=== PATIENT | male | born 1995 | race Caucasian/White ===

== ENCOUNTER 2017-03-11 14:44 | Emergency (ER) | payer OTHER ==
[2017-03-11] MEDS ORDERED: Azithromycin TAB* 250 MG PO ONE (15:24)
[2017-03-11] MEDS ORDERED: cefTRIAXone VIAL(*) 250 MG VIAL IM ONE (15:24)
[2017-03-11] MEDS ORDERED: Lidocaine 1% MPF* 2 ML VIAL INJ ONE (15:25)
--- NOTE | 2017-03-11 15:43 | UC ---
Complaint Male HPI - HPI Summary HPI Summary: ONE WEEK OF DISCOMFORT WITH URINATION, WHITE DISCHARGE FROM [facility]. TOOK AZO THIS MORNING, URINE NOW RED (CONCERN FOR BLOOD IN URINE). NO RECENT CHANGES IN SEXUAL PARTNER, HAS BEEN WITH SAME PARTNER SINCE SEPTEMBER. NO LESIONS. PARTNER COMPLAINS OF NO SYMPTOMS. NO FEVER. NO BACK PAIN. NO ABDOMINAL PAIN. - History of Current Complaint Chief Complaint: UCGU Stated Complaint: URINARY Time Seen by Provider: 03/11/17 14:56 Hx Obtained From: Patient Onset/Duration: Lasting Weeks Timing: Intermittent Severity Initially: Mild Severity Currently: Mild Location: Suprapubic Aggravating Factor(s): Voiding Associated Signs And Symptoms: Positive: Hematuria, Dysuria, Penile Discharge. Negative: Back Pain, Fever, Constipation, Blood in Stool, Rectal Pain, Appetite , Nausea, Vomiting(# Of Episodes =), Penile Swelling - Risk Factors Testicular Torsion: Negative - Allergies/Home Medications Allergies/Adverse Reactions: Allergies Allergy/AdvReac Type Severity Reaction Status Date / Time No Known Allergies Allergy Verified 03/11/17 14:51 Home Medications: Home Medications NK [No Home Medications Reported] 03/11/17 [History Confirmed 03/11/17] PMH/Surg Hx/FS Hx/Imm Hx Previously Healthy: Yes - Surgical History Surgical History: None - Family History Known Family History: Negative: Renal Disease - Social History Occupation: Student Lives: With Family Alcohol Use: Weekly Substance Use Type: None Smoking Status (MU): Never Smoked Tobacco Review of Systems Constitutional: Negative Skin: Negative Eyes: Negative ENT: Negative Respiratory: Negative Cardiovascular: Negative Gastrointestinal: Negative Genitourinary: Dysuria, Frequency, Urgency, Vaginal/Penile Discharge Motor: Negative Neurovascular: Negative Musculoskeletal: Negative Neurological: Negative Psychological: Negative Is Patient Immunocompromised?: No All Other Systems Reviewed And Are Negative: Yes Physical Exam Triage Information Reviewed: Yes Appearance: Well-Appearing, No Pain Distress, Well-Nourished Vital Signs: Initial Vital Signs Temp 98 F 03/11/17 14:48 Pulse 66 03/11/17 14:48 Resp 16 03/11/17 14:48 BP 139/80 03/11/17 14:48 Pulse Ox 98 03/11/17 14:48 Vital Signs Reviewed: Yes Eye Exam: Normal ENT Exam: Normal ENT: Positive: Normal ENT inspection, Hearing grossly normal, Pharynx normal Dental Exam: Normal Neck exam: Normal Neck: Positive: Supple, Nontender, No Lymphadenopathy Respiratory Exam: Normal Respiratory: Positive: Chest non-tender, Lungs clear, Normal breath sounds, No respiratory distress, No accessory muscle use Cardiovascular Exam: Normal Cardiovascular: Positive: RRR, No Murmur, Pulses Normal, Brisk Capillary Refill Abdominal Exam: Normal Abdomen Description: Positive: Nontender, No Organomegaly, Other: - NO PENILE LESIONS, NO TESTICULAR SWELLING. NO PENILE DISCHARGE NOTED ON PHYSICAL EXAM Musculoskeletal Exam: Normal Musculoskeletal: Positive: Strength Intact, ROM Intact Neurological Exam: Normal Psychological Exam: Normal Skin Exam: Normal Complaint Male Course/Dx - Course Course Of Treatment: DUE TO AZO, URINE CULTURE OBTAINED. GC TESTING OBTAINED WITH URETHRAL SWAB, TREATED PROPHYLACTICALLY FOR GC AT URGENT CARE. WILL FOLLOW UP WITH RECOMMENDATIONS AFTER URINE CULTURE IS FINALIZED. REFERRED TO DR THOMPSON, IF ALL RESULTS RETURN NEGATIVE. - Differential Dx/Diagnosis Differential Diagnosis/HQI/PQRI: Epididymitis, Cancer, Prostatitis, Urinary Tract Infection Provider Diagnoses: DYSURIA Discharge - Discharge Plan Condition: Stable Disposition: HOME Patient Education Materials: Dysuria (ED) Referrals: Ketan Thompson MD [Medical Doctor] - If Needed
--- NOTE | 2017-03-13 07:47 | UC ---
Progress - Progress Note Progress Note: Urine cx is neg. pt was treated for GC to be certain. -gc/chlam was neg -per note, he thinks he saw blood in urine, however UA was not done b/c he took azo. -I recommend that he have f/u w/ his pcp and/or the urologist he was referred to for f/u to check for blood and if he cont to have sx.
== END 2017-03-11 16:06 | disposition home or self-care (01) ==
LOC: UCCORT 14:44
DX: R30.0 Dysuria (principal); R36.9 Urethral discharge, unspecified; R31.9 Hematuria, unspecified
CPT/HCPCS: 87086; 87491; 87591; 96372; 99202; A9270-GY; G0463; J0696

== ENCOUNTER 2017-06-10 10:25 | Emergency (ER) | payer OTHER ==
--- NOTE | 2017-06-10 11:43 | UC ---
FLU HPI - HPI Summary HPI Summary: yesterday began with fever chills cough and body aches - History of Current Complaint Chief Complaint: UCRespiratory Stated Complaint: FLU SYMPTOM Time Seen by Provider: 06/10/17 11:32 Hx Obtained From: Patient Onset/Duration: Sudden Onset, Lasting Days - 1, Still Present Severity Currently: Moderate Severity Initially: Moderate Pain Intensity: 8 Pain Scale Used: 0-10 Numeric Associated Signs & Symptoms: Positive: Fever, Myalgia, Cough, Sore Throat, Nasal Congestion, Headache Related Hx: Possible Flu/Infectious Exposure - Allergy/Home Medications Allergies/Adverse Reactions: Allergies Allergy/AdvReac Type Severity Reaction Status Date / Time No Known Allergies Allergy Verified 06/10/17 11:46 PMH/Surg Hx/FS Hx/Imm Hx Previously Healthy: Yes - Surgical History Surgical History: None - Family History Known Family History: Negative: Renal Disease - Social History Occupation: Student Lives: Dormitory/Roommates Alcohol Use: Weekly Substance Use Type: None Smoking Status (MU): Never Smoked Tobacco Review of Systems Constitutional: Fever, Chills, Fatigue ENT: Sore Throat, Ear Ache, Nasal Discharge Respiratory: Cough Cardiovascular: Negative Gastrointestinal: Negative Genitourinary: Negative Motor: Negative Neurovascular: Negative Musculoskeletal: Arthralgia, Myalgia Neurological: Headache Psychological: Negative Is Patient Immunocompromised?: No All Other Systems Reviewed And Are Negative: Yes Physical Exam Triage Information Reviewed: Yes Appearance: Well-Nourished, Ill-Appearing, Pain Distress Vital Signs Reviewed: Yes Eye Exam: Normal Eyes: Positive: Conjunctiva Clear ENT Exam: Normal ENT: Positive: Normal ENT inspection, Hearing grossly normal, Pharynx normal, Nasal congestion, Nasal drainage, TMs normal, Uvula midline. Negative: Tonsillar swelling, Tonsillar exudate, Trismus, Muffled voice, Hoarse voice, Dental tenderness, Sinus tenderness Neck exam: Normal Neck: Positive: Supple, Nontender, No Lymphadenopathy Respiratory Exam: Normal Respiratory: Positive: Chest non-tender, Lungs clear, Normal breath sounds, No respiratory distress, No accessory muscle use Cardiovascular Exam: Normal Cardiovascular: Positive: No Murmur, Pulses Normal, Brisk Capillary Refill, Tachycardia Musculoskeletal Exam: Normal Musculoskeletal: Positive: Strength Intact, ROM Intact, No Edema Neurological Exam: Normal Neurological: Positive: Alert, Muscle Tone Normal Psychological Exam: Normal Skin Exam: Normal Diagnostics - Laboratory Diagnostic Studies Completed/Ordered: Influenza A/B (-) Strep (+) Flu Course/Dx - Course Course Of Treatment: Amoxicillin, tylenol, ibuprofen increaase fluids rest follow with [facility] if needed - Differential Dx/Diagnosis Provider Diagnoses: Strep Pharyngitis Discharge - Discharge Plan Condition: Stable Disposition: HOME Prescriptions: Amoxicillin PO (*) [Amoxicillin 500 MG CAP*] 500 mg PO Q12H #20 cap Patient Education Materials: Strep Throat (ED) Forms: *School Release Referrals: [facility] [Outside] - If Needed
[2017-06-10 11:45] VITALS: BP 136/69
[2017-06-10] MEDS: Ibuprofen TAB* 600 MG PO ONE (11:46)
== END 2017-06-10 12:23 | disposition home or self-care (01) ==
LOC: UCCORT 10:25
DX: J02.0 Streptococcal pharyngitis (principal)
CPT/HCPCS: 87502; 87651; 99212; A9270-GY; G0463

== ENCOUNTER 2018-01-11 13:59 | Emergency (ER) | payer OTHER ==
[2018-01-11 15:08] VITALS: BP 144/73
--- NOTE | 2018-01-11 15:50 | UC ---
UC General HPI - HPI Summary HPI Summary: Pt presents with cough, congestion and a mild headache for 2-3 days. he has not taken any medication for it today. he states he missed his class today because he felt ill. he denies any fever or productive cough. he states on occasion he has a mild wheeze. - History of Current Complaint Chief Complaint: UCGeneralIllness Stated Complaint: COUGH,CONGESTION Hx Obtained From: Patient Onset/Duration: Gradual Onset, Lasting Days Timing: Intermittent Episodes Lasting: Onset Severity: Mild Current Severity: Mild Pain Intensity: 4 Associated Signs & Symptoms: Positive: Cough - rare, Headache, Wheezing. Negative: Agitation, Abdominal Pain, Back Pain, Confusion, Dizziness, Diarrhea, Dysuria, Fever, Immunocompromised, Nausea, Palpitations, Syncope, SOB, Trauma, Vomiting, Weakness - Allergy/Home Medications Allergies/Adverse Reactions: Allergies Allergy/AdvReac Type Severity Reaction Status Date / Time No Known Allergies Allergy Verified 01/11/18 15:03 PMH/Surg Hx/FS Hx/Imm Hx Previously Healthy: Yes - Surgical History Surgical History: None - Family History Known Family History: Negative: Renal Disease - Social History Alcohol Use: Weekly Substance Use Type: None Smoking Status (MU): Never Smoked Tobacco Review of Systems Constitutional: Negative Skin: Negative Eyes: Negative ENT: Sinus Congestion Respiratory: Other - wheezing Gastrointestinal: Negative Motor: Negative Neurovascular: Negative Musculoskeletal: Negative Neurological: Negative Psychological: Negative Is Patient Immunocompromised?: No All Other Systems Reviewed And Are Negative: No Physical Exam Triage Information Reviewed: Yes Appearance: Well-Appearing, No Pain Distress, Well-Nourished Vital Signs: Initial Vital Signs Temp 98.5 F 01/11/18 15:03 Pulse 77 01/11/18 15:03 Resp 14 01/11/18 15:03 BP 144/73 01/11/18 15:03 Pulse Ox 98 01/11/18 15:03 Vital Signs Reviewed: Yes Eye Exam: Normal Eyes: Positive: Conjunctiva Clear ENT Exam: Normal ENT: Positive: Normal ENT inspection, Hearing grossly normal, Pharynx normal, Nasal congestion, Nasal drainage Dental Exam: Normal Neck exam: Normal Neck: Positive: Supple, Nontender Respiratory Exam: Normal Respiratory: Positive: Chest non-tender, Lungs clear, Normal breath sounds Cardiovascular Exam: Normal Cardiovascular: Positive: RRR, No Murmur, Pulses Normal Abdominal Exam: Normal Abdomen Description: Positive: Nontender, Soft Bowel Sounds: Positive: Present Musculoskeletal Exam: Normal Musculoskeletal: Positive: Strength Intact, ROM Intact, No Edema Neurological Exam: Normal Neurological: Positive: Alert Psychological Exam: Normal Skin Exam: Normal Course/Dx - Differential Dx - Multi-Symptom Provider Diagnoses: upper respiratory infection Discharge - Sign-Out/Discharge Documenting (check all that apply): Patient Departure All imaging exams completed and their final reports reviewed: No Studies - Discharge Plan Condition: Stable Disposition: HOME Prescriptions: Albuterol HFA INHALER* [Ventolin HFA Inhaler*] 2 puff INH Q4H PRN #1 mdi PRN Reason: Wheezing Inhaler,Assist Device,Med Mask [Aerochamber Z-Stat Plus] 1 each MC Q4HR #1 spacer Patient Education Materials: Upper Respiratory Infection (ED), Cold Symptoms ( ED) Forms: *School Release Referrals: Bita MERAZ,Jovany Langley [Primary Care Provider] - Additional Instructions: Please follow up with your primary care physician or the campus in 1-2 days. return if worse or any new symptoms. Take over the counter tylenol and motrin for fever and body aches. You may also take Robitussin over the counter and Sudafed or TheraFlu to help with your cough and cold symptoms. Be careful not to take products that have tylenol in it if you are also going to be taking tylenol. Use the inhaler with spacer as instructed. - Billing Disposition and Condition Condition: STABLE Disposition: Home
== END 2018-01-11 15:59 | disposition home or self-care (01) ==
LOC: UCCORT 13:59
DX: J06.9 Acute upper respiratory infection, unspecified (principal)
CPT/HCPCS: 99212; G0463